=== PATIENT | male | born 1955 | race Two or more races ===

== ENCOUNTER 2021-11-22 06:43 | Emergency (ER) | payer OTHER ==
[~2021-11-22] VITALS: Ht 175.3 cm; Wt 117.5 kg
[2021-11-22 08:02] LABS: Basophils # (auto) 0.1 10 ^3/uL (0-0.2); Basophils % (auto) 0.7 % (0.0-2.0); Eosinophils # (auto) 0.2 10 ^3/uL (0-0.8); Eosinophils % (auto) 2.4 % (0.0-7.0); Hematocrit 39.3 % (41.0-53.0); Hemoglobin 13.7 g/dL (13.5-17.5); Lymphocytes # (auto) 1.7 10 ^3/uL (0.4-5.4); Lymphocytes % (auto) 19.8 % (10.0-50.0); Mean Corpuscular Hemoglobin 29.4 pg (28.0-32.0); Mean Corpuscular Hgb Conc. 34.7 g/dL (32.0-36.0); Mean Corpuscular Volume 84.6 fL (80.0-100.0); Monocytes # (auto) 0.4 10 ^3/uL (0-1.3); Monocytes % (auto) 4.8 % (0.0-12.0); Neutrophils # (auto) 6.1 10 ^3/uL (1.6-8.6); Neutrophils % (auto) 72.3 % (37.0-80.0); Nucleated Red Blood Cells % 0.1 %; Red Blood Cells 4.65 10^6/uL (4.5-5.90); Red Cell Distribution Width 16.2 % (11.8-14.3); White Blood Cell 8.4 10^3/uL (4.4-10.8)
[2021-11-22 08:25] LABS: Albumin 3.5 g/dL (3.4-5.0); Calcium 10.3 mg/dL (8.5-10.1)
[2021-11-22 08:30] LABS: Bilirubin, Total 0.6 mg/dL (0.2-1.0); Total Protein 7.5 g/dL (6.4-8.2)
[2021-11-22 11:15] VITALS: BP 119/74
[2021-11-22] MEDS ORDERED: ASPirin 81 mg TAB PO ONE (11:15)
[2021-11-22] MEDS ORDERED: IOHEXOL 350 MG/ML 100ML IJ ONE (12:38)
== END 2021-11-22 13:59 | disposition home or self-care (01) ==
LOC: ER 06:43
DX: R07.89 Other chest pain (principal); I10 Essential (primary) hypertension; Z90.49 Acquired absence of other specified parts of digestive tract; Z86.73 Personal history of transient ischemic attack (TIA), and cerebral infarction without residual deficits
CPT/HCPCS: 36415; 71046; 71275; 80053; 83690; 83735; 83880; 84484; 85025; 85379; 93005; 99285; Q9967

== ENCOUNTER 2024-05-31 10:47 | Emergency (ER) | payer OTHER ==
[~2024-05-31] VITALS: Ht 172.7 cm; Wt 123.0 kg
[2024-05-31 12:37] LABS: Basophils # (auto) 0.1 10 ^3/uL (0-0.2); Basophils % (auto) 0.8 % (0.0-2.0); Eosinophils # (auto) 0.4 10 ^3/uL (0-0.8); Eosinophils % (auto) 4.3 % (0.0-7.0); Hematocrit 38.6 % (41.0-53.0); Hemoglobin 13.2 g/dL (13.5-17.5); Lymphocytes # (auto) 1.3 10 ^3/uL (0.4-5.4); Lymphocytes % (auto) 14.5 % (10.0-50.0); Mean Corpuscular Hemoglobin 29.2 pg (28.0-32.0); Mean Corpuscular Hgb Conc. 34.2 g/dL (32.0-36.0); Mean Corpuscular Volume 85.3 fL (80.0-100.0); Monocytes # (auto) 0.7 10 ^3/uL (0-1.3); Monocytes % (auto) 7.5 % (0.0-12.0); Neutrophils # (auto) 6.4 10 ^3/uL (1.6-8.6); Neutrophils % (auto) 72.9 % (37.0-80.0); Platelet Count (auto) 271 10^3/uL (140-450); Red Blood Cells 4.53 10^6/uL (4.5-5.90); Red Cell Distribution Width 16.1 % (11.8-14.3); White Blood Cell 8.8 10^3/uL (4.4-10.8)
[2024-05-31 12:59] LABS: Chloride 106 mmol/L (98-107); Potassium 4.1 mmol/L (3.5-5.1); Sodium 136 mmol/L (136-145)
[2024-05-31 13:00] LABS: Anion Gap 6 (5-15); Calcium 9.5 mg/dL (8.7-10.4); Carbon Dioxide 24 mmol/L (20-30)
[2024-05-31 13:05] LABS: BUN/Creatinine Ratio 20.9 (10.0-20.0); Blood Urea Nitrogen 18 mg/dL (9-23); Glucose 121 mg/dL (74-106)
[2024-05-31 16:51] VITALS: RESP 18
[2024-05-31 17:19] VITALS: BP 141/87; PULSE 64; RESP 22; TEMP 98.2; O2SAT 97
== END 2024-05-31 16:35 | disposition home or self-care (01) ==
LOC: EDBD 10:47 → ER 11:03
DX: S80.02XA Contusion of left knee, initial encounter (principal); I10 Essential (primary) hypertension; E11.9 Type 2 diabetes mellitus without complications; M54.9 Dorsalgia, unspecified; Z86.73 Personal history of transient ischemic attack (TIA), and cerebral infarction without residual deficits; Z90.49 Acquired absence of other specified parts of digestive tract; W01.0XXA Fall on same level from slipping, tripping and stumbling without subsequent striking against object, initial encounter; Y93.89 Activity, other specified; Y92.098 Other place in other non-institutional residence as the place of occurrence of the external cause; Y99.8 Other external cause status
CPT/HCPCS: 36415; 72131; 73700; 80048; 85025

== ENCOUNTER 2024-06-01 17:57 | Emergency (ER) | payer OTHER ==
[~2024-06-01] VITALS: Ht 180.3 cm; Wt 140.0 kg
[2024-06-01 19:53] LABS: Basophils # (auto) 0 10 ^3/uL (0-0.2); Basophils % (auto) 0.5 % (0.0-2.0); Eosinophils # (auto) 0.3 10 ^3/uL (0-0.8); Eosinophils % (auto) 3.6 % (0.0-7.0); Hematocrit 38.8 % (41.0-53.0); Hemoglobin 12.8 g/dL (13.5-17.5); Lymphocytes # (auto) 1.1 10 ^3/uL (0.4-5.4); Lymphocytes % (auto) 16.5 % (10.0-50.0); Mean Corpuscular Hemoglobin 27.9 pg (28.0-32.0); Mean Corpuscular Hgb Conc. 32.9 g/dL (32.0-36.0); Mean Corpuscular Volume 84.8 fL (80.0-100.0); Monocytes # (auto) 0.4 10 ^3/uL (0-1.3); Monocytes % (auto) 6.3 % (0.0-12.0); Neutrophils # (auto) 5.1 10 ^3/uL (1.6-8.6); Neutrophils % (auto) 73.1 % (37.0-80.0); Platelet Count (auto) 266 10^3/uL (140-450); Red Blood Cells 4.57 10^6/uL (4.5-5.90); Red Cell Distribution Width 15.9 % (11.8-14.3)
[2024-06-01 20:03] LABS: Chloride 108 mmol/L (98-107); Potassium 4.5 mmol/L (3.5-5.1); Sodium 137 mmol/L (136-145)
[2024-06-01 20:04] LABS: Anion Gap 5 (5-15); Carbon Dioxide 24 mmol/L (20-30)
[2024-06-01 20:05] LABS: Calcium 9.3 mg/dL (8.7-10.4)
[2024-06-01 20:09] LABS: BUN/Creatinine Ratio 16.4 (10.0-20.0); Blood Urea Nitrogen 21 mg/dL (9-23); Glucose 168 mg/dL (74-106)
[2024-06-01 20:27] LABS: Urine Bacteria None Seen /hpf (None Seen)
[2024-06-01 21:32] LABS: Urine Blood 1+ /uL (Negative); Urine Clarity Clear (Clear); Urine Color Yellow (Yellow); Urine Mucus FEW (None Seen); Urine Protein, UAD TRACE (Negative); Urine Specific Gravity 1.031 (1.001-1.035); Urine Urobilinogen Normal (Negative); Urine WBC 1 /hpf (0 - 3); Urine pH 5.5 (5.0-9.0)
[2024-06-02 01:30] VITALS: BP 146/68; PULSE 75; RESP 18; TEMP 97.9; O2SAT 98
== END 2024-06-02 02:27 | disposition home or self-care (01) ==
LOC: ER 17:57 → EDBD 17:57 → ER 06-02 02:11
DX: R31.9 Hematuria, unspecified (principal); E27.8 Other specified disorders of adrenal gland; E11.9 Type 2 diabetes mellitus without complications; I10 Essential (primary) hypertension; Z90.49 Acquired absence of other specified parts of digestive tract; Z86.73 Personal history of transient ischemic attack (TIA), and cerebral infarction without residual deficits
CPT/HCPCS: 36415; 51702; 74176; 80048; 81001; 85025

== ENCOUNTER 2024-07-09 20:40 | Inpatient (IN) | payer OTHER ==
[~2024-07-09] VITALS: Ht 170.2 cm; Wt 124.0 kg
[2024-07-09] MEDS: DexAMETHasone SOD PHOS 10MG/1ML VIAL INJ IM ONE (21:15)
[2024-07-09 21:40] LABS: Basophils # (auto) 0 10 ^3/uL (0-0.2); Basophils % (auto) 0.2 % (0.0-2.0); Eosinophils # (auto) 0 10 ^3/uL (0-0.8); Eosinophils % (auto) 0.1 % (0.0-7.0); Hematocrit 42.2 % (41.0-53.0); Lymphocytes # (auto) 1.3 10 ^3/uL (0.4-5.4); Lymphocytes % (auto) 5.2 % (10.0-50.0); Mean Corpuscular Hemoglobin 28.1 pg (28.0-32.0); Mean Corpuscular Hgb Conc. 33.2 g/dL (32.0-36.0); Mean Corpuscular Volume 84.5 fL (80.0-100.0); Monocytes # (auto) 0.4 10 ^3/uL (0-1.3); Monocytes % (auto) 1.6 % (0.0-12.0); Neutrophils # (auto) 23.3 10 ^3/uL (1.6-8.6); Neutrophils % (auto) 92.9 % (37.0-80.0); Nucleated Red Blood Cells % 0.1 %; Platelet Count (auto) 329 10^3/uL (140-450); Red Blood Cells 4.99 10^6/uL (4.5-5.90); Red Cell Distribution Width 17.1 % (11.8-14.3); White Blood Cell 25.1 10^3/uL (4.4-10.8)
[2024-07-09] MEDS: PIPERACILLIN-TAZOB 3.375GM 100 ML IV ONE (22:00)
[2024-07-09] MEDS ORDERED: VANCOMYCIN PER PHARMACY 0 MG IV SCH (22:00)
[2024-07-09 22:03] LABS: Alanine Aminotransferase 923 U/L (7-40); Albumin 4.2 g/dL (3.2-4.8); Alkaline Phosphatase 242 U/L (46-116); Anion Gap 22 (5-15); BUN/Creatinine Ratio 15.3 (10.0-20.0); Bilirubin, Total 1.5 mg/dL (0.2-1.0); Blood Urea Nitrogen 56 mg/dL (9-23); Calcium 9.7 mg/dL (8.7-10.4); Carbon Dioxide 10 mmol/L (20-31); Chloride 103 mmol/L (98-107); Glucose 94 mg/dL (74-106); Magnesium 2.2 mg/dL (1.6-2.6); Potassium 5.5 mmol/L (3.5-5.1); Sodium 135 mmol/L (136-145); Total Protein 7.5 g/dL (5.7-8.2)
[2024-07-09 22:13] LABS: Lactic Acid w/Reflex 10.3 mmol/L (0.4-2.0)
[2024-07-09] MEDS: VANCOMYCIN 1GM/250ML 200 ML IV SCH (22:15)
[2024-07-09 22:18] LABS: Aspartate Aminotransferase 1181 U/L (13-40)
[2024-07-09] MEDS: ALBUTEROL SULF 2.5 MG/0.5ML(0.5%) NEB SOLN NEB ONE (22:21)
[2024-07-09] MEDS: IPRATROPIUM BROM 0.5 MG/2.5ML INH SOL NEB ONE (22:21)
[2024-07-09] MEDS: SODIUM CHLORIDE 0.9% 1,000 ML IV ONE (22:25)
[2024-07-09] MEDS ORDERED: ENOXAPARIN SOD 40 MG/0.4 ML SYRINGE SC ONE (23:00)
[2024-07-09] MEDS: NOREPINEPHRINE 8 MG/250ML KIT 250 ML IV SCH (23:30)
[2024-07-09 23:34] LABS: Urine Bacteria FEW /hpf (None Seen); Urine Blood 2+ /uL (Negative); Urine Clarity Ex.Turbid (Clear); Urine Color Brown (Yellow); Urine Mucus FEW (None Seen); Urine Protein, UAD 4+ (Negative); Urine Specific Gravity 1.013 (1.001-1.035); Urine Urobilinogen Normal (Negative); Urine WBC 60 /hpf (0 - 3); Urine pH 8.5 (5.0-9.0)
[2024-07-09] MEDS: ROCURONIUM 10MG/ML 10ML VIAL IV ONE (23:44)
[2024-07-09] MEDS: ETOMIDATE (2MG/ML) 20ML VIAL IV ONE (23:44)
[2024-07-10] VITALS (15 sets, daily range): BP systolic 91–147; BP diastolic 31–71; PULSE 115–130; RESP 18–30; O2SAT 95–100
[2024-07-10] MEDS: SODIUM CHLORIDE 0.9% 2,000 ML IV ONE (00:15)
[2024-07-10 00:46] LABS: Base Excess -19.8 mmol/L (-2.0-3.0)
[2024-07-10] MEDS ORDERED: ONDANSETRON HCL 4 MG/2 ML VIAL IV PRN (01:30)
[2024-07-10] MEDS ORDERED: VANCOMYCIN PER PHARMACY 0 MG IV SCH (01:30)
[2024-07-10] MEDS: PIPERACILLIN-TAZOB 2.25GM 50 ML IV SCH (01:30)
[2024-07-10] MEDS: SODIUM CHLORIDE 0.9% 1,000 ML IV SCH (01:30)
[2024-07-10] MEDS: PROPOFOL 10 MG/ML 20 ML IV ONE (01:57)
[2024-07-10] MEDS: PROPOFOL 100 ML IV ONE (02:06)
[2024-07-10 02:10] LABS: Chloride 106 mmol/L (98-107); Sodium 136 mmol/L (136-145)
[2024-07-10 02:11] LABS: Anion Gap 17 (5-15); Calcium 8.1 mg/dL (8.7-10.4); Carbon Dioxide 13 mmol/L (20-31)
[2024-07-10] MEDS: PROPOFOL 100 ML IV SCH (02:15)
[2024-07-10 02:16] LABS: BUN/Creatinine Ratio 14.2 (10.0-20.0); Blood Urea Nitrogen 55 mg/dL (9-23); Glucose 109 mg/dL (74-106)
[2024-07-10 02:23] LABS: Lactic Acid w/Reflex 6.5 mmol/L (0.4-2.0)
[2024-07-10 03:49] LABS: Hematocrit 37.9 % (41.0-53.0); Hemoglobin 12.2 g/dL (13.5-17.5); Mean Corpuscular Hemoglobin 28.4 pg (28.0-32.0); Mean Corpuscular Hgb Conc. 32.3 g/dL (32.0-36.0); Mean Corpuscular Volume 87.7 fL (80.0-100.0); Platelet Count (auto) 309 10^3/uL (140-450); Red Blood Cells 4.32 10^6/uL (4.5-5.90); Red Cell Distribution Width 17.3 % (11.8-14.3)
[2024-07-10 03:54] LABS: White Blood Cell 36.3 10^3/uL (4.4-10.8)
[2024-07-10 03:56] LABS: Basophils % (manual) 0 (0.0-2.0); Blast Cells 0; Eosinophils % (manual) 0 (0-7); Promyelocytes % 0; Reactive Lymphocytes 0
[2024-07-10 03:59] LABS: Albumin 3.5 g/dL (3.2-4.8); Alkaline Phosphatase 246 U/L (46-116); Anion Gap 13 (5-15); BUN/Creatinine Ratio 13.2 (10.0-20.0); Blood Urea Nitrogen 52 mg/dL (9-23); Calcium 7.9 mg/dL (8.7-10.4); Carbon Dioxide 15 mmol/L (20-31); Chloride 107 mmol/L (98-107); Glucose 123 mg/dL (74-106); Sodium 135 mmol/L (136-145); Total Protein 6.4 g/dL (5.7-8.2)
[2024-07-10 04:10] LABS: Aspartate Aminotransferase 4668 U/L (13-40)
[2024-07-10 04:11] LABS: Alanine Aminotransferase 2840 U/L (7-40)
[2024-07-10 04:13] LABS: Bilirubin, Total 1.1 mg/dL (0.2-1.0)
[2024-07-10 04:39] LABS: Band Neutrophils % (manual) 26; Lymphocytes % (manual) 3 (10.0-50.0); Metamyelocytes % 2; Monocytes % (manual) 1 (0-12); Myelocytes % 1; Platelet Estimate Adequate
[2024-07-10] MEDS ORDERED: ACETAMINOPHEN IV 1000 MG/100ML (10MG/ML) IV PRN (05:15)
[2024-07-10] MEDS: ACETAMINOPHEN IV 1000 MG/100ML (10MG/ML) IV STA (05:21)
[2024-07-10] MEDS: PHENYLEPHRINE IV 250 ML IV ONE (07:02)
[2024-07-10] MEDS: PHENYLEPHRINE IV 250 ML IV SCH (07:13)
[2024-07-10 08:05] LABS: Base Excess -17.2 mmol/L (-2.0-3.0)
[2024-07-10] MEDS: PANTOPRAZOLE 40 MG/10 ML VIAL INJ IV SCH (09:37)
[2024-07-10] MEDS ORDERED: NITROGLYCERIN 0.4 MG SL TAB SL PRN (10:15)
[2024-07-10] MEDS ORDERED: MORPHINE SULFATE INJ 2 MG/ml SYRG IV PRN (10:15)
[2024-07-10 13:52] LABS: Urine Bacteria None Seen /hpf (None Seen)
[2024-07-10 14:02] LABS: Urine Blood 3+ /uL (Negative); Urine Clarity Ex.Turbid (Clear); Urine Color Dark-Brown (Yellow); Urine Protein, UAD 2+ (Negative); Urine Specific Gravity 1.014 (1.001-1.035); Urine Urobilinogen Normal (Negative); Urine WBC 218 /hpf (0 - 3); Urine pH 6.5 (5.0-9.0)
[2024-07-10] MEDS: MIDAZOLAM DRIP 50 mg/50mL 50 ML IV SCH (14:09)
[2024-07-10 14:15] LABS: Creatinine, Urine 58.97 mg/dL (30.0-125.0)
[2024-07-10 14:18] LABS: Protein, Urine 588.1 mg/dL (1-14)
[2024-07-10] MEDS: SODIUM BICARB 8.4% 50Meq/50ml SYR Vial IV ONE (16:51)
[2024-07-10] MEDS: SODIUM BICARB 50mEq/50ml Vial 150 ML in D5W 5% 1,000 ML IV SCH (16:51)
[2024-07-10] MEDS: MEROPENEM 500MG IVPB 50 ML IV SCH (18:35)
[2024-07-10 18:41] LABS: Chloride 107 mmol/L (98-107); Sodium 135 mmol/L (136-145)
[2024-07-10 18:42] LABS: Anion Gap 16 (5-15); Carbon Dioxide 12 mmol/L (20-31)
[2024-07-10 18:43] LABS: Calcium 6.4 mg/dL (8.7-10.4)
[2024-07-10 18:48] LABS: BUN/Creatinine Ratio 15.7 (10.0-20.0); Glucose 182 mg/dL (74-106)
[2024-07-10 19:14] LABS: Blood Urea Nitrogen 71 mg/dL (9-23)
[2024-07-10 19:15] LABS: Potassium 6.9 mmol/L (3.5-5.1)
[2024-07-10] MEDS: SODIUM BICARB 8.4% 50Meq/50ml SYR INJ IV ONE (20:01)
[2024-07-10] MEDS: ACETAMINOPHEN 650 MG RECT SUPP PR PRN (20:02)
[2024-07-10] MEDS: CALCIUM GLUC 1,000mg/50ml-NS 50 ML IV ONE (20:02)
[2024-07-10] MEDS: SODIUM ZIRCONIUM CYCL 10 GM PAK PO ONE (20:02)
[2024-07-10] MEDS: DEXTROSE (50%) 50ML SYRG IV ONE (20:02)
[2024-07-10] MEDS: InsuLIN REG 1unit/0.01ml Soln (100units/ml) IV ONE (20:03)
[2024-07-11] VITALS (38 sets, daily range): BP systolic 82–162; BP diastolic 35–81; PULSE 75–112; RESP 14–30; TEMP 97.3–99.2; O2SAT 95–99
[2024-07-11] MEDS: CALCIUM GLUC 1,000mg/50ml-NS 50 ML IV ONE ×2 (01:20→23:54)
[2024-07-11] MEDS: DEXTROSE (50%) 50ML SYRG IV ONE (01:21)
[2024-07-11] MEDS: SODIUM BICARB 8.4% 50Meq/50ml SYR INJ IV ONE (01:21)
[2024-07-11] MEDS: InsuLIN REG 1unit/0.01ml Soln (100units/ml) IV ONE (01:24)
[2024-07-11] MEDS: ACETAMINOPHEN 650 mg PER 20.3 mL UD GT PRN (02:02)
[2024-07-11] MEDS: IBUPROFEN 100MG/5ML ORAL SUSP 100 MG/5 ML UD GT PRN (03:50)
[2024-07-11 06:09] LABS: Hematocrit 37.4 % (41.0-53.0); Hemoglobin 12.5 g/dL (13.5-17.5); Mean Corpuscular Hemoglobin 27.9 pg (28.0-32.0); Mean Corpuscular Hgb Conc. 33.3 g/dL (32.0-36.0); Mean Corpuscular Volume 83.7 fL (80.0-100.0); Platelet Count (auto) 159 10^3/uL (140-450); Red Blood Cells 4.47 10^6/uL (4.5-5.90); Red Cell Distribution Width 16.9 % (11.8-14.3); White Blood Cell 23.9 10^3/uL (4.4-10.8)
[2024-07-11 06:11] LABS: Basophils % (manual) 0 (0.0-2.0); Blast Cells 0; Eosinophils % (manual) 0 (0-7); Lymphocytes % (manual) 0 (10.0-50.0); Promyelocytes % 0; Reactive Lymphocytes 0
[2024-07-11 06:18] LABS: Albumin 2.6 g/dL (3.2-4.8); Alkaline Phosphatase 193 U/L (46-116); Anion Gap 14 (5-15); BUN/Creatinine Ratio 14.1 (10.0-20.0); Bilirubin, Total 1.9 mg/dL (0.2-1.0); Blood Urea Nitrogen 72 mg/dL (9-23); Calcium 6.2 mg/dL (8.7-10.4); Carbon Dioxide 18 mmol/L (20-31); Chloride 108 mmol/L (98-107); Glucose 237 mg/dL (74-106); Phosphorus 6.2 mg/dL (2.4-5.1); Potassium 5.3 mmol/L (3.5-5.1); Sodium 140 mmol/L (136-145); Total Protein 4.6 g/dL (5.7-8.2); Uric Acid 11.5 mg/dL (3.7-9.2)
[2024-07-11 06:36] LABS: Bilirubin, Direct 1.4 mg/dL (<0.3)
[2024-07-11 07:01] LABS: Anisocytosis Slight; Band Neutrophils % (manual) 46; Metamyelocytes % 1; Monocytes % (manual) 3 (0-12); Myelocytes % 1; Platelet Estimate Adequate
[2024-07-11 07:02] LABS: Polychromasia Slight
[2024-07-11 07:25] LABS: Lactic Acid w/Reflex 3.1 mmol/L (0.4-2.0)
[2024-07-11 07:31] LABS: Base Excess -7.8 mmol/L (-2.0-3.0)
[2024-07-11] MEDS: fentaNYL Drip 2500mCg/250mlNS 250 ML IV SCH (16:11)
[2024-07-11] MEDS: NOREPINEPHRINE BITARTRATE 32 MG in SODIUM CHL 0.9% 218 ML IV SCH (18:30)
[2024-07-11] MEDS ORDERED: DEXTROSE (50%) 50ML SYRG IV PRN (20:45)
[2024-07-11 21:26] LABS: Chloride 107 mmol/L (98-107); Potassium 5.1 mmol/L (3.5-5.1)
[2024-07-11 21:27] LABS: Carbon Dioxide 21 mmol/L (20-31)
[2024-07-11 21:32] LABS: BUN/Creatinine Ratio 12.4 (10.0-20.0); Blood Urea Nitrogen 73 mg/dL (9-23); Glucose 226 mg/dL (74-106)
[2024-07-11] MEDS: PANTOPRAZOLE 40 MG/10 ML VIAL INJ IV SCH (22:11)
[2024-07-11 22:34] LABS: Anion Gap 10 (5-15); Sodium 138 mmol/L (136-145)
[2024-07-11] MEDS: PHENYLEPHRINE INJ 80 MG in SODIUM CHL 0.9% 242 ML IV SCH (23:01)
[2024-07-11] MEDS: VASOPRESSIN 20 UNITS in SODIUM CHL 0.9% 99 ML IV SCH (23:15)
[2024-07-11] MEDS: HYDROCORTISONE SOD SUCC 100 MG/2ML INJ VIAL IV SCH (23:54)
[2024-07-11] MEDS: VANCOMYCIN 1GM/250ML 200 ML IV SCH (23:55)
[2024-07-12] VITALS (106 sets, daily range): BP systolic 105–175; BP diastolic 43–71; PULSE 65–120; RESP 17–25; TEMP 96.6–98.1; O2SAT 94–100
[2024-07-12] MEDS: InsuLIN REG 1unit/0.01ml Soln (100units/ml) SC SCH (00:02)
[2024-07-12] MEDS: ACCU-CHEK COMFORT CURVE STRIP VI SCH (00:02)
[2024-07-12 04:34] LABS: Basophils # (auto) 0 10 ^3/uL (0-0.2); Basophils % (auto) 0.1 % (0.0-2.0); Eosinophils # (auto) 0 10 ^3/uL (0-0.8); Eosinophils % (auto) 0.2 % (0.0-7.0); Hematocrit 32.4 % (41.0-53.0); Hemoglobin 11.1 g/dL (13.5-17.5); Lymphocytes # (auto) 0.8 10 ^3/uL (0.4-5.4); Lymphocytes % (auto) 3.9 % (10.0-50.0); Mean Corpuscular Hemoglobin 27.8 pg (28.0-32.0); Mean Corpuscular Hgb Conc. 34.1 g/dL (32.0-36.0); Mean Corpuscular Volume 81.4 fL (80.0-100.0); Monocytes # (auto) 0.6 10 ^3/uL (0-1.3); Neutrophils # (auto) 19.6 10 ^3/uL (1.6-8.6); Neutrophils % (auto) 92.8 % (37.0-80.0); Nucleated Red Blood Cells % 0.1 %; Platelet Count (auto) 125 10^3/uL (140-450); Red Blood Cells 3.98 10^6/uL (4.5-5.90); Red Cell Distribution Width 17.2 % (11.8-14.3); White Blood Cell 21.1 10^3/uL (4.4-10.8)
[2024-07-12 04:44] LABS: Alkaline Phosphatase 186 U/L (46-116); Anion Gap 11 (5-15); Aspartate Aminotransferase 903 U/L (13-40); BUN/Creatinine Ratio 12.7 (10.0-20.0); Bilirubin, Total 1.3 mg/dL (0.2-1.0); Blood Urea Nitrogen 77 mg/dL (9-23); Calcium 6.4 mg/dL (8.7-10.4); Carbon Dioxide 22 mmol/L (20-31); Chloride 105 mmol/L (98-107); Glucose 229 mg/dL (74-106); Potassium 5.1 mmol/L (3.5-5.1); Sodium 138 mmol/L (136-145); Total Protein 4.8 g/dL (5.7-8.2)
[2024-07-12 04:58] LABS: Alanine Aminotransferase 1633 U/L (7-40)
[2024-07-12 05:20] LABS: Albumin 2.6 g/dL (3.2-4.8)
[2024-07-12] MEDS: FUROSEMIDE INJECTION 100 MG in SODIUM CHL 0.9% 100 ML IV SCH ×2 (12:24→16:13)
[2024-07-12] MEDS: METOCLOPRAMIDE HCL 5MG/ml INJ 2ml VIAL IV SCH (14:00)
[2024-07-12] MEDS ORDERED: METO25TA5 PO (18:31)
[2024-07-12] MEDS ORDERED: HYDR25TA4 PO (18:31)
[2024-07-12] MEDS ORDERED: IBU600T PO (18:31)
[2024-07-12] MEDS ORDERED: CYCL-839 PO (18:31)
[2024-07-12] MEDS ORDERED: METF-370 PO (18:31)
[2024-07-12] MEDS ORDERED: ATOR10TA52 PO (18:31)
[2024-07-12] MEDS ORDERED: LISI20TA56 PO (18:31)
[2024-07-12] MEDS ORDERED: TRAM50TA2 PO ×2 (18:31)
[2024-07-12 20:45] LABS: Anion Gap 12 (5-15); Carbon Dioxide 24 mmol/L (20-31); Chloride 103 mmol/L (98-107); Potassium 4.8 mmol/L (3.5-5.1); Sodium 139 mmol/L (136-145)
[2024-07-12 20:50] LABS: Glucose 222 mg/dL (74-106)
[2024-07-12 20:51] LABS: BUN/Creatinine Ratio 13.6 (10.0-20.0); Magnesium 1.7 mg/dL (1.6-2.6)
[2024-07-12 21:31] LABS: Blood Urea Nitrogen 85 mg/dL (9-23)
[2024-07-12] MEDS: NYSTATIN TOPICAL POWDER 15GM TOP SCH (22:00)
[2024-07-13] VITALS (105 sets, daily range): BP systolic 13–165; BP diastolic 31–66; PULSE 61–100; RESP 15–25; TEMP 96.6–98.4; O2SAT 93–100
[2024-07-13 03:48] LABS: Hematocrit 29.6 % (41.0-53.0); Hemoglobin 10.1 g/dL (13.5-17.5); Mean Corpuscular Hemoglobin 27.7 pg (28.0-32.0); Mean Corpuscular Hgb Conc. 34.1 g/dL (32.0-36.0); Mean Corpuscular Volume 81.2 fL (80.0-100.0); Platelet Count (auto) 115 10^3/uL (140-450); Red Blood Cells 3.64 10^6/uL (4.5-5.90); Red Cell Distribution Width 17.2 % (11.8-14.3); White Blood Cell 17.3 10^3/uL (4.4-10.8)
[2024-07-13 04:01] LABS: Alanine Aminotransferase 943 U/L (7-40); Albumin 2.4 g/dL (3.2-4.8); Alkaline Phosphatase 137 U/L (46-116); Anion Gap 12 (5-15); Aspartate Aminotransferase 289 U/L (13-40); BUN/Creatinine Ratio 12.9 (10.0-20.0); Carbon Dioxide 24 mmol/L (20-31); Chloride 103 mmol/L (98-107); Glucose 196 mg/dL (74-106); Potassium 4.6 mmol/L (3.5-5.1); Sodium 139 mmol/L (136-145); Total Protein 4.5 g/dL (5.7-8.2)
[2024-07-13 04:20] LABS: Basophils % (manual) 0 (0.0-2.0); Blast Cells 0; Eosinophils % (manual) 0 (0-7); Metamyelocytes % 0; Myelocytes % 0; Promyelocytes % 0
[2024-07-13 04:22] LABS: Blood Urea Nitrogen 85 mg/dL (9-23)
[2024-07-13 05:48] LABS: Base Excess 0.8 mmol/L (-2.0-3.0)
[2024-07-13 06:08] LABS: Band Neutrophils % (manual) 2; Lymphocytes % (manual) 9 (10.0-50.0); Monocytes % (manual) 2 (0-12); Reactive Lymphocytes 1
[2024-07-13 06:09] LABS: Anisocytosis Slight; Large Platelets FEW; Platelet Estimate Decreased
[2024-07-13 09:35] LABS: INR 1.13 (0.9-1.15); Partial Thromboplastin Time 29.5 SEC (24.5-34.5); Prothrombin Time 11.9 sec (9.3-11.8)
[2024-07-13] MEDS: SODIUM CHL 0.9% 1000 ML BAG XX ONE (12:30)
[2024-07-13] MEDS ORDERED: ALBUMIN 25% 100 ML IV PRN (13:00)
[2024-07-13 13:52] LABS: Free T3 1.44 pg/mL (2.3-4.2); Free T4 (Free Thyroxine) 0.6 ng/dL (0.89-1.76)
[2024-07-13] MEDS ORDERED: ALBUMIN 25% 100 ML IV ONE (14:15)
[2024-07-13] MEDS: ALBUMIN 25% 100 ML IV ONE (14:15)
[2024-07-13 14:45] LABS: % Iron Saturation 26.9 % (20-55)
[2024-07-13] MEDS ORDERED: CLINIMIX PER PHARMACY 0 ML IV SCH (14:45)
[2024-07-13] MEDS: ALBUMIN 25% 100 ML IV PRN (15:32)
[2024-07-13] MEDS: AMINO ACID INFUSION IN D10W 1,000 ML IV SCH (20:30)
[2024-07-14] VITALS (112 sets, daily range): BP systolic 78–164; BP diastolic 31–93; PULSE 54–99; RESP 14–25; TEMP 97.2–99.1; O2SAT 92–100
[2024-07-14 04:43] LABS: Alanine Aminotransferase 516 U/L (7-40); Albumin 2.8 g/dL (3.2-4.8); Alkaline Phosphatase 130 U/L (46-116); Anion Gap 13 (5-15); Aspartate Aminotransferase 110 U/L (13-40); BUN/Creatinine Ratio 14.1 (10.0-20.0); Blood Urea Nitrogen 76 mg/dL (9-23); Calcium 6.9 mg/dL (8.7-10.4); Carbon Dioxide 25 mmol/L (20-31); Chloride 102 mmol/L (98-107); Glucose 186 mg/dL (74-106); Magnesium 1.9 mg/dL (1.6-2.6); Potassium 4.8 mmol/L (3.5-5.1); Sodium 140 mmol/L (136-145)
[2024-07-14 04:44] LABS: Bilirubin, Total 1.2 mg/dL (0.2-1.0); Phosphorus 5.5 mg/dL (2.4-5.1); Total Protein 4.5 g/dL (5.7-8.2)
[2024-07-14 04:49] LABS: Hematocrit 25.5 % (41.0-53.0); Hemoglobin 8.8 g/dL (13.5-17.5); Mean Corpuscular Hemoglobin 27.5 pg (28.0-32.0); Mean Corpuscular Hgb Conc. 34.3 g/dL (32.0-36.0); Mean Corpuscular Volume 80.2 fL (80.0-100.0); Platelet Count (auto) 110 10^3/uL (140-450); Red Blood Cells 3.19 10^6/uL (4.5-5.90); Red Cell Distribution Width 17.1 % (11.8-14.3)
[2024-07-14 04:53] LABS: Band Neutrophils % (manual) 0; Basophils % (manual) 0 (0.0-2.0); Blast Cells 0; Eosinophils % (manual) 0 (0-7); Metamyelocytes % 0; Myelocytes % 0; Promyelocytes % 0; Reactive Lymphocytes 0
[2024-07-14 07:07] LABS: Base Excess 3.3 mmol/L (-2.0-3.0)
[2024-07-14 08:43] LABS: Lymphocytes % (manual) 7 (10.0-50.0); Monocytes % (manual) 3 (0-12); Platelet Estimate Decreased
[2024-07-14] MEDS: SODIUM CHL 0.9% 1000 ML BAG XX ONE (11:03)
[2024-07-14] MEDS: PANTOPRAZOLE 80 MG in SODIUM CHL 0.9% 100 ML IV ONE (19:54)
[2024-07-14] MEDS: PANTOPRAZOLE 40mg/50ML NS AE 50 ML IV SCH (20:37)
[2024-07-15] VITALS (94 sets, daily range): BP systolic 84–176; BP diastolic 35–84; PULSE 57–104; RESP 10–25; TEMP 97.7–99; O2SAT 94–100
[2024-07-15 04:31] LABS: Hemoglobin 9.5 g/dL (13.5-17.5); Mean Corpuscular Hemoglobin 27.6 pg (28.0-32.0); Mean Corpuscular Hgb Conc. 33.9 g/dL (32.0-36.0); Mean Corpuscular Volume 81.4 fL (80.0-100.0); Platelet Count (auto) 147 10^3/uL (140-450); Red Blood Cells 3.43 10^6/uL (4.5-5.90); Red Cell Distribution Width 16.5 % (11.8-14.3)
[2024-07-15 04:49] LABS: Alanine Aminotransferase 306 U/L (7-40); Albumin 3.2 g/dL (3.2-4.8); Alkaline Phosphatase 136 U/L (46-116); Anion Gap 12 (5-15); Aspartate Aminotransferase 80 U/L (13-40); BUN/Creatinine Ratio 14.4 (10.0-20.0); Bilirubin, Total 1.7 mg/dL (0.2-1.0); Blood Urea Nitrogen 72 mg/dL (9-23); Calcium 7.7 mg/dL (8.7-10.4); Carbon Dioxide 27 mmol/L (20-31); Chloride 99 mmol/L (98-107); Glucose 211 mg/dL (74-106); Potassium 4.6 mmol/L (3.5-5.1); Sodium 138 mmol/L (136-145); Total Protein 5.1 g/dL (5.7-8.2)
[2024-07-15 04:50] LABS: Basophils % (manual) 0 (0.0-2.0); Blast Cells 0; Metamyelocytes % 0; Myelocytes % 0; Promyelocytes % 0; Reactive Lymphocytes 0
[2024-07-15 05:38] LABS: Band Neutrophils % (manual) 1; Eosinophils % (manual) 1 (0-7); Lymphocytes % (manual) 10 (10.0-50.0); Monocytes % (manual) 3 (0-12); Platelet Estimate Adequate
[2024-07-15 07:28] LABS: Base Excess 1.9 mmol/L (-2.0-3.0)
[2024-07-15 09:19] LABS: Hepatitis B Surface Antigen Negative (Negative)
[2024-07-15 09:22] LABS: Hepatitis B Core Total AB Negative (Negative)
[2024-07-15 09:40] LABS: Hepatitis B Core IgM Negative; Hepatitis C Antibody Negative (Negative)
[2024-07-15 09:44] LABS: Hepatitis A Ab IgM Negative
[2024-07-15] MEDS: SODIUM CHL 0.9% 1000 ML BAG XX ONE (10:30)
[2024-07-15 11:12] LABS: Hepatitis A Total Antibody Negative (Negative); Hepatitis B Surface Antibody Negative (Negative); Hepatitis B Surface Antigen Negative (Negative); Hepatitis C Antibody Negative (Negative)
[2024-07-15 15:49] LABS: Base Excess 3.1 mmol/L (-2.0-3.0)
[2024-07-15] MEDS ORDERED: LORazepam 2MG/ML-1ML VIAL IV PRN (19:30)
[2024-07-15] MEDS: EPOETIN ALFA-EPBX 10,000 UNIT/1ML VIAL SC ONE (21:03)
[2024-07-15] MEDS: PANTOPRAZOLE 40 MG/10 ML VIAL INJ IV SCH (22:26)
[2024-07-16] VITALS (49 sets, daily range): BP systolic 63–139; BP diastolic 34–85; PULSE 92–109; RESP 15–25; TEMP 97.5–99.7; O2SAT 90–100
[2024-07-16 04:06] LABS: Basophils # (auto) 0 10 ^3/uL (0-0.2); Eosinophils # (auto) 0 10 ^3/uL (0-0.8); Eosinophils % (auto) 0.1 % (0.0-7.0); Hematocrit 28.1 % (41.0-53.0); Hemoglobin 9.6 g/dL (13.5-17.5); Lymphocytes # (auto) 0.9 10 ^3/uL (0.4-5.4); Lymphocytes % (auto) 5.9 % (10.0-50.0); Mean Corpuscular Hemoglobin 27.7 pg (28.0-32.0); Mean Corpuscular Volume 81.6 fL (80.0-100.0); Monocytes # (auto) 0.7 10 ^3/uL (0-1.3); Monocytes % (auto) 4.6 % (0.0-12.0); Neutrophils # (auto) 13.7 10 ^3/uL (1.6-8.6); Neutrophils % (auto) 89.4 % (37.0-80.0); Platelet Count (auto) 151 10^3/uL (140-450); Red Blood Cells 3.45 10^6/uL (4.5-5.90); Red Cell Distribution Width 16.9 % (11.8-14.3); White Blood Cell 15.4 10^3/uL (4.4-10.8)
[2024-07-16 04:27] LABS: Alanine Aminotransferase 205 U/L (7-40); Albumin 3.5 g/dL (3.2-4.8); Alkaline Phosphatase 124 U/L (46-116); Anion Gap 12 (5-15); Aspartate Aminotransferase 68 U/L (13-40); Calcium 8.4 mg/dL (8.7-10.4); Carbon Dioxide 27 mmol/L (20-31); Chloride 100 mmol/L (98-107); Glucose 193 mg/dL (74-106); Magnesium 2.1 mg/dL (1.6-2.6); Phosphorus 7.1 mg/dL (2.4-5.1); Potassium 4.3 mmol/L (3.5-5.1); Sodium 139 mmol/L (136-145)
[2024-07-16 04:28] LABS: Bilirubin, Total 1.6 mg/dL (0.2-1.0); Total Protein 5.3 g/dL (5.7-8.2)
[2024-07-16 04:34] LABS: Blood Urea Nitrogen 80 mg/dL (9-23)
[2024-07-16] MEDS: SODIUM CHL 0.9% 1000 ML BAG XX ONE (07:00)
[2024-07-16] MEDS: NOREPINEPHRINE 8 MG/250ML KIT 250 ML IV SCH (07:30)
[2024-07-16] MEDS: CALCIUM ACETATE 667 MG CAP NG SCH (12:41)
[2024-07-17] VITALS (91 sets, daily range): BP systolic 78–135; BP diastolic 40–74; PULSE 94–124; RESP 15–36; TEMP 98.4–100.2; O2SAT 94–100
[2024-07-17 03:44] LABS: Hematocrit 31.5 % (41.0-53.0); Hemoglobin 10.8 g/dL (13.5-17.5); Mean Corpuscular Hemoglobin 27.9 pg (28.0-32.0); Mean Corpuscular Hgb Conc. 34.2 g/dL (32.0-36.0); Mean Corpuscular Volume 81.7 fL (80.0-100.0); Platelet Count (auto) 217 10^3/uL (140-450); Red Blood Cells 3.86 10^6/uL (4.5-5.90); Red Cell Distribution Width 17.5 % (11.8-14.3); White Blood Cell 26.2 10^3/uL (4.4-10.8)
[2024-07-17 03:55] LABS: Basophils % (manual) 0 (0.0-2.0); Blast Cells 0; Eosinophils % (manual) 0 (0-7); Metamyelocytes % 0; Myelocytes % 0; Promyelocytes % 0; Reactive Lymphocytes 0
[2024-07-17 04:03] LABS: Alanine Aminotransferase 152 U/L (7-40); Alkaline Phosphatase 152 U/L (46-116); Anion Gap 12 (5-15); BUN/Creatinine Ratio 16.8 (10.0-20.0); Calcium 8.6 mg/dL (8.7-10.4); Carbon Dioxide 28 mmol/L (20-31); Chloride 99 mmol/L (98-107); Glucose 224 mg/dL (74-106); Magnesium 2.1 mg/dL (1.6-2.6); Potassium 3.6 mmol/L (3.5-5.1); Sodium 139 mmol/L (136-145)
[2024-07-17 04:04] LABS: Albumin 3.8 g/dL (3.2-4.8); Aspartate Aminotransferase 51 U/L (13-40); Bilirubin, Total 1.7 mg/dL (0.2-1.0); Phosphorus 5.9 mg/dL (2.4-5.1); Total Protein 5.8 g/dL (5.7-8.2)
[2024-07-17 04:13] LABS: Blood Urea Nitrogen 68 mg/dL (9-23)
[2024-07-17 05:09] LABS: Band Neutrophils % (manual) 1; Lymphocytes % (manual) 5 (10.0-50.0); Monocytes % (manual) 5 (0-12); Platelet Estimate Adequate
[2024-07-17] MEDS ORDERED: VANCOMYCIN PER PHARMACY 0 MG IV SCH (12:00)
[2024-07-17] MEDS: POTASSIUM CHL 20MEQ/100ML 100 ML IV SCH (12:54)
[2024-07-17] MEDS: BUMETANIDE INJECTION 25 MG in GIVE UN-DILUTED 0 ML IV SCH (13:00)
[2024-07-17] MEDS: VANCOMYCIN 1GM/250ML 200 ML IV ONE (13:09)
[2024-07-17] MEDS: guaiFENesin-DM 100/10mg/5ml SYR PO PRN (13:09)
[2024-07-17 14:34] LABS: COVID19 ANTIGEN SOFIA FIA NEGATIVE (NEGATIVE); Rapid Influenza A Negative (Negative); Rapid Influenza B Negative (Negative)
[2024-07-18] VITALS (96 sets, daily range): BP systolic 88–164; BP diastolic 37–96; PULSE 102–133; RESP 13–31; TEMP 99.3–100.8; O2SAT 82–100
[2024-07-18 05:06] LABS: Hemoglobin 10.9 g/dL (13.5-17.5); Mean Corpuscular Hemoglobin 27.3 pg (28.0-32.0); Platelet Count (auto) 311 10^3/uL (140-450)
[2024-07-18 05:09] LABS: Hematocrit 33.2 % (41.0-53.0); Mean Corpuscular Hgb Conc. 32.9 g/dL (32.0-36.0); Red Cell Distribution Width 17.2 % (11.8-14.3)
[2024-07-18 05:18] LABS: White Blood Cell 31.2 10^3/uL (4.4-10.8)
[2024-07-18 05:19] LABS: Band Neutrophils % (manual) 0; Basophils % (manual) 0 (0.0-2.0); Blast Cells 0; Metamyelocytes % 0; Myelocytes % 0; Promyelocytes % 0; Reactive Lymphocytes 0
[2024-07-18 05:37] LABS: Alanine Aminotransferase 95 U/L (7-40); Albumin 3.4 g/dL (3.2-4.8); Alkaline Phosphatase 146 U/L (46-116); Anion Gap 17 (5-15); Aspartate Aminotransferase 27 U/L (13-40); BUN/Creatinine Ratio 19.1 (10.0-20.0); Calcium 8.5 mg/dL (8.7-10.4); Carbon Dioxide 22 mmol/L (20-31); Chloride 98 mmol/L (98-107); Glucose 204 mg/dL (74-106); Magnesium 2.1 mg/dL (1.6-2.6); Potassium 4.1 mmol/L (3.5-5.1); Sodium 137 mmol/L (136-145)
[2024-07-18 05:38] LABS: Bilirubin, Total 1.1 mg/dL (0.2-1.0); Phosphorus 8.8 mg/dL (2.4-5.1); Total Protein 5.5 g/dL (5.7-8.2)
[2024-07-18 06:10] LABS: Eosinophils % (manual) 1 (0-7); Lymphocytes % (manual) 2 (10.0-50.0); Monocytes % (manual) 6 (0-12)
[2024-07-18 06:11] LABS: Platelet Estimate Adequate
[2024-07-18 06:22] LABS: Blood Urea Nitrogen 113 mg/dL (9-23)
[2024-07-18] MEDS: SODIUM CHL 0.9% 1000 ML BAG XX ONE (07:00)
[2024-07-18 08:34] LABS: INR 1.09 (0.9-1.15); Partial Thromboplastin Time 27.3 SEC (24.5-34.5); Prothrombin Time 11.5 sec (9.3-11.8)
[2024-07-18] MEDS: HYDROmorphone HCL 2 MG/ML VL/or syr IV PRN (11:42)
[2024-07-18] MEDS ORDERED: VANCOMYCIN HCL 250 MG CAP PO SCH (12:00)
[2024-07-18] MEDS: VANCOMYCIN 500MG RECTAL ENEMA IN 100ML/NS PR SCH (12:45)
[2024-07-18] MEDS: metroNIDAZOLE 500MG/100ML 100 ML IV SCH (14:55)
[2024-07-18] MEDS ORDERED: VANCOMYCIN 500MG RECTAL ENEMA IN 100ML/NS PR SCH (17:00)
[2024-07-18] MEDS: ACETAMINOPHEN IV 1000 MG/100ML (10MG/ML) IV PRN (18:54)
[2024-07-18] MEDS: VANCOMYCIN 1GM/250ML 200 ML IV ONE (20:41)
[2024-07-18] MEDS: EPOETIN ALFA-EPBX 10,000 UNIT/1ML VIAL SC ONE (20:43)
[2024-07-19] VITALS (47 sets, daily range): BP systolic 92–149; BP diastolic 43–80; PULSE 98–118; RESP 14–29; TEMP 98.1–99.2; O2SAT 95–99
[2024-07-19 07:01] LABS: Basophils # (auto) 0 10 ^3/uL (0-0.2); Basophils % (auto) 0.1 % (0.0-2.0); Eosinophils # (auto) 0 10 ^3/uL (0-0.8); Eosinophils % (auto) 0.1 % (0.0-7.0); Hematocrit 29.1 % (41.0-53.0); Hemoglobin 9.7 g/dL (13.5-17.5); Lymphocytes # (auto) 0.7 10 ^3/uL (0.4-5.4); Lymphocytes % (auto) 3.8 % (10.0-50.0); Mean Corpuscular Hemoglobin 27.5 pg (28.0-32.0); Mean Corpuscular Hgb Conc. 33.3 g/dL (32.0-36.0); Mean Corpuscular Volume 82.7 fL (80.0-100.0); Monocytes # (auto) 0.7 10 ^3/uL (0-1.3); Monocytes % (auto) 4.1 % (0.0-12.0); Neutrophils # (auto) 16.2 10 ^3/uL (1.6-8.6); Neutrophils % (auto) 91.9 % (37.0-80.0); Nucleated Red Blood Cells % 0.1 %; Platelet Count (auto) 316 10^3/uL (140-450); Red Blood Cells 3.52 10^6/uL (4.5-5.90); Red Cell Distribution Width 17.7 % (11.8-14.3); White Blood Cell 17.6 10^3/uL (4.4-10.8)
[2024-07-19 07:14] LABS: Alanine Aminotransferase 72 U/L (7-40); Albumin 3.2 g/dL (3.2-4.8); Alkaline Phosphatase 144 U/L (46-116); Anion Gap 13 (5-15); Aspartate Aminotransferase 35 U/L (13-40); BUN/Creatinine Ratio 18.6 (10.0-20.0); Calcium 8.7 mg/dL (8.7-10.4); Carbon Dioxide 26 mmol/L (20-31); Chloride 101 mmol/L (98-107); Glucose 198 mg/dL (74-106); Magnesium 2.2 mg/dL (1.6-2.6); Phosphorus 9.6 mg/dL (2.4-5.1); Potassium 4.3 mmol/L (3.5-5.1); Sodium 140 mmol/L (136-145)
[2024-07-19 07:15] LABS: Bilirubin, Total 1.3 mg/dL (0.2-1.0); Total Protein 5.3 g/dL (5.7-8.2)
[2024-07-19 07:21] LABS: Blood Urea Nitrogen 87 mg/dL (9-23)
[2024-07-19] MEDS: GASTROGRAFIN 120 ML SOL ONE (11:46)
[2024-07-19] MEDS ORDERED: DEXTROSE (50%) 50ML SYRG IV SCH (15:00)
[2024-07-19] MEDS: LIDOCAINE 1% (LOCAL ANESTH.) PF 5ml SDV ID ONE (16:15)
[2024-07-19] MEDS: ACCU-CHEK COMFORT CURVE STRIP VI SCH (18:00)
[2024-07-19] MEDS: InsuLIN REG 1unit/0.01ml Soln (100units/ml) SC SCH (19:03)
[2024-07-19] MEDS ORDERED: CLINIMIX PER PHARMACY 0 ML IV SCH (20:00)
[2024-07-19] MEDS: SODIUM CHLOR 0.9% PF (SALINE LOCK) 10ML VIAL/SYR IV SCH (22:00)
[2024-07-20] VITALS (26 sets, daily range): BP systolic 78–153; BP diastolic 42–96; PULSE 100–120; RESP 16–27; TEMP 97.8–98.8; O2SAT 95–99
[2024-07-20 06:38] LABS: Basophils # (auto) 0 10 ^3/uL (0-0.2); Basophils % (auto) 0.1 % (0.0-2.0); Eosinophils # (auto) 0 10 ^3/uL (0-0.8); Hematocrit 28.4 % (41.0-53.0); Hemoglobin 9.5 g/dL (13.5-17.5); Lymphocytes # (auto) 0.6 10 ^3/uL (0.4-5.4); Lymphocytes % (auto) 4.3 % (10.0-50.0); Mean Corpuscular Hemoglobin 27.5 pg (28.0-32.0); Mean Corpuscular Hgb Conc. 33.2 g/dL (32.0-36.0); Mean Corpuscular Volume 82.8 fL (80.0-100.0); Monocytes # (auto) 0.7 10 ^3/uL (0-1.3); Monocytes % (auto) 4.9 % (0.0-12.0); Neutrophils % (auto) 90.7 % (37.0-80.0); Platelet Count (auto) 360 10^3/uL (140-450); Red Blood Cells 3.43 10^6/uL (4.5-5.90); Red Cell Distribution Width 18.1 % (11.8-14.3); White Blood Cell 14.3 10^3/uL (4.4-10.8)
[2024-07-20 06:55] LABS: Alanine Aminotransferase 64 U/L (7-40); Albumin 3.2 g/dL (3.2-4.8); Alkaline Phosphatase 134 U/L (46-116); Anion Gap 18 (5-15); Aspartate Aminotransferase 33 U/L (13-40); BUN/Creatinine Ratio 20.6 (10.0-20.0); Bilirubin, Total 0.8 mg/dL (0.2-1.0); Calcium 8.5 mg/dL (8.7-10.4); Carbon Dioxide 23 mmol/L (20-31); Chloride 105 mmol/L (98-107); Glucose 173 mg/dL (74-106); Magnesium 2.5 mg/dL (1.6-2.6); Phosphorus 12.7 mg/dL (2.4-5.1); Potassium 3.7 mmol/L (3.5-5.1); Total Protein 5.4 g/dL (5.7-8.2)
[2024-07-20 07:05] LABS: Sodium 146 mmol/L (136-145)
[2024-07-20 07:07] LABS: Blood Urea Nitrogen 127 mg/dL (9-23)
[2024-07-20] MEDS: VANCOMYCIN HCL 250 MG CAP PO SCH (12:20)
[2024-07-20] MEDS: AMINO ACID INFUSION IN D10W 1,000 ML IV SCH (21:09)
[2024-07-21] VITALS (14 sets, daily range): BP systolic 93–124; BP diastolic 50–73; PULSE 70–129; RESP 17–28; TEMP 36.2; O2SAT 94–99
[2024-07-21] MEDS ORDERED: HYDROcodone-ACET 5/325MG TAB PO PRN (09:45)
[2024-07-21 11:14] LABS: Alanine Aminotransferase 48 U/L (7-40); Albumin 2.9 g/dL (3.2-4.8); Alkaline Phosphatase 118 U/L (46-116); Anion Gap 15 (5-15); Aspartate Aminotransferase 27 U/L (13-40); BUN/Creatinine Ratio 20.4 (10.0-20.0); Calcium 8.7 mg/dL (8.7-10.4); Carbon Dioxide 23 mmol/L (20-31); Chloride 99 mmol/L (98-107); Glucose 242 mg/dL (74-106); Magnesium 2.1 mg/dL (1.6-2.6); Potassium 3.1 mmol/L (3.5-5.1); Sodium 137 mmol/L (136-145); Triglycerides 81 mg/dL (< 150)
[2024-07-21 11:15] LABS: Bilirubin, Total 0.9 mg/dL (0.2-1.0); Phosphorus 8.6 mg/dL (2.4-5.1); Total Protein 5.3 g/dL (5.7-8.2)
[2024-07-21 11:19] LABS: Blood Urea Nitrogen 97 mg/dL (9-23)
[2024-07-21] MEDS: fentaNYL CITRATE 100 MCG/2 ML VL ONE (14:02)
[2024-07-21] MEDS: MIDAZOLAM HCL 2MG/2ML 2ml VIAL (1mg/ml) ONE (14:03)
[2024-07-21] MEDS: LIDOCAINE 2%HCL (LOCAL ANESTH.) INJ 20ML MDV ONE (14:03)
[2024-07-21] MEDS: HEPARIN SODIUM (PORCINE) 5000 UNITS/ML 1ML VIAL ONE (14:04)
[2024-07-21] MEDS: POTASSIUM EFFERVESENT TAB 25 MEQ PO ONE (17:00)
== END 2024-07-21 21:28 | disposition short-term general hospital (02) | DRG 870 ==
LOC: EDUNIT# 20:40 → EDBD 20:40 → ER 20:40 → OVERFLOW 07-10 10:12 → ICU WEST 07-11 17:22 → ICU CENTRL 07-17 19:11 → DOU IN ICU 07-17 20:42 → ICU CENTRL 07-19 18:13 → CENTRAL 07-21 05:08 → TELE-CENTR 07-21 05:14
PROVIDERS: ADMIT Internal Medicine; ATTEND Student in an Organized Health Care Education/Training Program
PROC: 5A1955Z Respiratory Ventilation, Greater than 96 Consecutive Hours (ICD-10-PCS; principal; 2024-07-10)
PROC: 0BH18EZ Insertion of Endotracheal Airway into Trachea, Via Natural or Artificial Opening Endoscopic (ICD-10-PCS; 2024-07-10)
PROC: 06HN33Z Insertion of Infusion Device into Left Femoral Vein, Percutaneous Approach (ICD-10-PCS; 2024-07-10)
PROC: 02HV33Z Insertion of Infusion Device into Superior Vena Cava, Percutaneous Approach (ICD-10-PCS; 2024-07-13)
PROC: B548ZZA Ultrasonography of Superior Vena Cava, Guidance (ICD-10-PCS; 2024-07-13)
PROC: 5A1D70Z Performance of Urinary Filtration, Intermittent, Less than 6 Hours Per Day (ICD-10-PCS; 2024-07-13)
PROC: 5A1D70Z Performance of Urinary Filtration, Intermittent, Less than 6 Hours Per Day (ICD-10-PCS; 2024-07-14)
PROC: 5A1D70Z Performance of Urinary Filtration, Intermittent, Less than 6 Hours Per Day (ICD-10-PCS; 2024-07-15)
PROC: 5A1D70Z Performance of Urinary Filtration, Intermittent, Less than 6 Hours Per Day (ICD-10-PCS; 2024-07-16)
PROC: 5A1D70Z Performance of Urinary Filtration, Intermittent, Less than 6 Hours Per Day (ICD-10-PCS; 2024-07-18)
PROC: 02HV33Z Insertion of Infusion Device into Superior Vena Cava, Percutaneous Approach (ICD-10-PCS; 2024-07-19)
PROC: B548ZZA Ultrasonography of Superior Vena Cava, Guidance (ICD-10-PCS; 2024-07-19)
PROC: 5A1D70Z Performance of Urinary Filtration, Intermittent, Less than 6 Hours Per Day (ICD-10-PCS; 2024-07-20)
PROC: 0JH63XZ Insertion of Tunneled Vascular Access Device into Chest Subcutaneous Tissue and Fascia, Percutaneous Approach (ICD-10-PCS; 2024-07-21)
PROC: 02H633Z Insertion of Infusion Device into Right Atrium, Percutaneous Approach (ICD-10-PCS; 2024-07-21)
PROC: B5181ZA Fluoroscopy of Superior Vena Cava using Low Osmolar Contrast, Guidance (ICD-10-PCS; 2024-07-21)
PROC: B548ZZA Ultrasonography of Superior Vena Cava, Guidance (ICD-10-PCS; 2024-07-21)
DX: A41.9 Sepsis, unspecified organism (principal); J96.01 Acute respiratory failure with hypoxia; K72.00 Acute and subacute hepatic failure without coma; R65.21 Severe sepsis with septic shock; N17.0 Acute kidney failure with tubular necrosis; J15.1 Pneumonia due to Pseudomonas; J14 Pneumonia due to Hemophilus influenzae; J98.11 Atelectasis; N39.0 Urinary tract infection, site not specified; I47.20 Ventricular tachycardia, unspecified; Z68.42 Body mass index [BMI] 45.0-49.9, adult; E87.4 Mixed disorder of acid-base balance; K92.2 Gastrointestinal hemorrhage, unspecified; Z20.822 Contact with and (suspected) exposure to COVID-19; E11.9 Type 2 diabetes mellitus without complications; E66.01 Morbid (severe) obesity due to excess calories; E87.5 Hyperkalemia; I10 Essential (primary) hypertension; R31.0 Gross hematuria; F41.9 Anxiety disorder, unspecified; G47.00 Insomnia, unspecified; E27.8 Other specified disorders of adrenal gland; S80.02XA Contusion of left knee, initial encounter; R79.89 Other specified abnormal findings of blood chemistry; E78.5 Hyperlipidemia, unspecified; B96.4 Proteus (mirabilis) (morganii) as the cause of diseases classified elsewhere; E83.39 Other disorders of phosphorus metabolism; E83.51 Hypocalcemia; E07.81 Sick-euthyroid syndrome; I27.20 Pulmonary hypertension, unspecified; Z79.84 Long term (current) use of oral hypoglycemic drugs; Z79.899 Other long term (current) drug therapy; Z90.49 Acquired absence of other specified parts of digestive tract; Z86.73 Personal history of transient ischemic attack (TIA), and cerebral infarction without residual deficits; Z83.3 Family history of diabetes mellitus
CPT/HCPCS: 31500; 36415; 36556; 36558; 36569; 36600; 71045; 71250; 74018; 74176; 74250; 76705; 76775; 77001; 80048; 80053; 80074; 80076; 80202; 81001; 82010; 82270; 82306; 82570; 82728; 82805; 82962; 83540; 83550; 83605; 83735; 83880; 84100; 84132; 84156; 84300; 84439; 84443; 84478; 84481; 84484; 84550; 85007; 85025; 85027; 85379; 85610; 85730; 86704; 86706; 86708; 86803; 87040; 87045; 87070; 87077; 87081; 87086; 87088; 87186; 87205; 87340; 87426; 87427; 87493; 87804; 90935; 92610; 93005; 93306; 93970; 94002; 94003; 94640; 96365; 96366; 96375; 97110; 97163; 97530; 99152; 99291; C1894; G0378; J0131; J1100; J1642; J1815; J2185; J2250; J2470; J2543; J2704; J3370; J3480; J3490; P9047